=== PATIENT | male | born 1980 | race Caucasian/White ===

== ENCOUNTER 2019-01-07 09:58 | Emergency (ER) | payer MEDICAID, OTHER ==
[~2019-01-07] VITALS: Ht 193 cm; Wt 92.3 kg
[~2019-01-07 09:58] MED LIST: CYCL-1 PO
[2019-01-07 10:22] VITALS: BP 120/82
--- NOTE | 2019-01-07 11:21 | NUR ---
Pain 11/27. PA notified, ordered obtained for Traer 10-325mg
[2019-01-07] MEDS ORDERED: HYDROcodone/acetaminophen 10/325mg tab PO ONE (11:25)
[2019-01-07] MEDS ORDERED: HYDR-4353 PO (12:04)
== END 2019-01-07 12:11 | disposition home or self-care (01) ==
LOC: ER 09:59
DX: S82.291A Other fracture of shaft of right tibia, initial encounter for closed fracture (principal); S82.831A Other fracture of upper and lower end of right fibula, initial encounter for closed fracture; F10.99 Alcohol use, unspecified with unspecified alcohol-induced disorder; F12.90 Cannabis use, unspecified, uncomplicated; Z88.1 Allergy status to other antibiotic agents; Z79.899 Other long term (current) drug therapy; V09.9XXA Pedestrian injured in unspecified transport accident, initial encounter; Y93.89 Activity, other specified; Y92.89 Other specified places as the place of occurrence of the external cause; Y99.8 Other external cause status; Y90.9 Presence of alcohol in blood, level not specified
CPT/HCPCS: 73590; 99283

== ENCOUNTER 2019-01-14 09:55 | Outpatient (CLI) | payer MEDICAID, OTHER | END 2019-01-14 10:42 | disposition home or self-care (01) | LOC: ORTHO 09:55 | PROVIDERS: ATTEND Nurse Practitioner | DX: S82.391D Other fracture of lower end of right tibia, subsequent encounter for closed fracture with routine healing (principal); S82.831D Other fracture of upper and lower end of right fibula, subsequent encounter for closed fracture with routine healing; F17.210 Nicotine dependence, cigarettes, uncomplicated; Z72.89 Other problems related to lifestyle; Z88.8 Allergy status to other drugs, medicaments and biological substances | CPT/HCPCS: A4590; G0463 ==

== ENCOUNTER → 2019-01-28 | Outpatient (CLI) | payer MEDICAID, OTHER | END | disposition home or self-care (01) | LOC: ORTHO 09:32 | PROVIDERS: ATTEND Nurse Practitioner | DX: S82.831D Other fracture of upper and lower end of right fibula, subsequent encounter for closed fracture with routine healing (principal); M25.771 Osteophyte, right ankle; X58.XXXD Exposure to other specified factors, subsequent encounter | CPT/HCPCS: 73610; A4590; G0463 ==

== ENCOUNTER 2019-03-17 09:39 | Outpatient (CLI) | payer MEDICAID | END 2019-03-17 09:49 | disposition home or self-care (01) | LOC: ORTHO 09:39 | PROVIDERS: ATTEND Nurse Practitioner | DX: S53.104A Unspecified dislocation of right ulnohumeral joint, initial encounter (principal); X58.XXXA Exposure to other specified factors, initial encounter; Y93.89 Activity, other specified; Y92.89 Other specified places as the place of occurrence of the external cause; Y99.8 Other external cause status | CPT/HCPCS: 73610; G0463 ==

== ENCOUNTER 2020-02-02 12:31 | Emergency (ER) | payer MEDICAID ==
[~2020-02-02] VITALS: Ht 193 cm; Wt 90.0 kg
[~2020-02-02 12:31] MED LIST changes: +LIDOcaine 1% W/epiNEPHrine 1:100,000 20ml vial ONE
[2020-02-02 12:33] VITALS: BP 136/84
[2020-02-02] MEDS ORDERED: TETanus/Pertussis (Acell)/Diphther VAC/PF (Tdap-Adult) 0.5ml syringe IMVAC ONE (12:55)
--- NOTE | 2020-02-02 13:09 | NUR ---
[facility].
== END 2020-02-02 13:37 ==
LOC: ER 12:31
DX: S61.216A Laceration without foreign body of right little finger without damage to nail, initial encounter (principal); Z72.89 Other problems related to lifestyle; Z88.1 Allergy status to other antibiotic agents; Z20.3 Contact with and (suspected) exposure to rabies; Z79.899 Other long term (current) drug therapy; X99.1XXA Assault by knife, initial encounter; Y93.89 Activity, other specified; Y92.89 Other specified places as the place of occurrence of the external cause; Y99.8 Other external cause status
CPT/HCPCS: 12002; 90471; 90715; 93005; 99283

== ENCOUNTER 2020-02-22 14:50 | Emergency (ER) | payer MEDICAID ==
[~2020-02-22] VITALS: Ht 193 cm; Wt 110.0 kg
[~2020-02-22 14:50] MED LIST changes: -LIDOcaine 1% W/epiNEPHrine 1:100,000 20ml vial ONE
[2020-02-22 15:35] VITALS: BP 146/98
== END 2020-02-22 16:18 | disposition home or self-care (01) ==
LOC: ER 14:51
DX: Z00.00 Encounter for general adult medical examination without abnormal findings (principal); Z88.1 Allergy status to other antibiotic agents; Z79.899 Other long term (current) drug therapy
CPT/HCPCS: 99281